=== PATIENT | female | born 1965 | race Two or more races ===

== ENCOUNTER 2024-07-27 16:54 | Emergency (ER) | payer MEDICAID ==
[~2024-07-27] VITALS: Ht 172.7 cm; Wt 103.2 kg
[2024-07-27 17:06] VITALS: BP 137/62; PULSE 97; O2SAT 99
[2024-07-27 19:49] VITALS: RESP 16
[2024-07-27] MEDS: ketorolac trometh 30MG/ML vial 30 MG/ML VIAL IM ONE (19:49)
--- NOTE | 2024-07-27 20:18 | Physician Documentation ---
History of Present Illness ~ Chief Complaint: Back Pain Stated Complaint: LOWER BACKPAIN Time Seen by MD: 18:59 OK to notify your PCP?: Yes Source: patient, family Mode of Arrival: POV Exam Limitations: no limitations HPI Jazmyn is a 59-year-old female who reports going on a 4 hour hike today and now is having some lumbar muscle pain worse on the left side. She states that she had lumbar surgery on her discs 4 years ago. She has good range of motion just pain with changing positions. She denies any muscle weakness numbness or tingling. She denies any falls or trauma during her hike. Denies any urinary symptoms. Medication Reconciliation Allergies: Coded Allergies: No Known Allergies (Unverified , 07/27/24) Scheduled Cyclobenzaprine* (Cyclobenzaprine*), 1 TAB PO HS Lidocaine (Lidoderm), 1 PATCH TOP DAILY Review of Systems All Other Systems at this time: Reviewed and Negative Physical Exam Physical Exam Vital Signs: RN Vital Signs have been reviewed: Yes, Temperature: 97.8, Source: Oral, Heart Rate: 97, Respiratory Rate: 16, BP: 137/62, Pulse Oximetry: 99, Weight: 103.180 Pulse Oximetry Reflects: adequate oxygenation Physical Exam General: conscious, coherent, non-toxic appearing, follows commands appropriately and in no apparent distress. Skin: Warm and dry without rash. Neck: Supple. Trachea midline. No JVD. Chest: Good expansion without retractions or grunting. Equal chest rise and fall. Lungs clear to auscultation Heart: No cyanosis. S1-S2 normal no murmurs gallops rubs or clicks. Extremities: Full range of motion. Good strength, bilaterally. No cyanosis, clubbing or edema. Back: No CVA tenderness. Pain with palpating the muscle on her left lumbar area. Neurologic: A&Ox4. Moves all extremities. Speech is clear. Gait normal. Progress Results/Orders Reviewed/noted all lab results: Yes Results/Orders Completed Orders - JAMILAH SAHU SERVICE ARCHITECT Ketorolac Trometh 30mg/Ml Vial (Toradol (07/27/24 19:00) Cyclobenzaprine Tablet (Flexeril Tablet) (07/27/24 20:20) Vital Signs 07/27/24 07/27/24 07/27/24 17:06 19:49 20:29 Temp 97.8 97.8 Pulse 97 Resp 18 16 B/P (MAP) 137/62 Pulse Ox 99 Medical Decision Making Findings Jazmyn is a 59-year-old female with low back muscle pain/soreness after a 4 hour hike today. There has been no trauma to the area or falls. She has good range of motion but is tender to palpation. She denies any urinary symptoms, which rules out the possibility of a kidney stone causing the pain. She reports h aving some relief from the Toradol which was ordered. We used shared decision making with the patient and she agrees to the plan of having Flexeril and a Lidoderm patch to go home and take Tylenol and ibuprofen for pain relief. We discuss strict return instructions and if she has any new or worsening symptoms to please return to the emergency department such as numbness/weakness/tingling in her extremities. Follow-up with her primary care provider in the next 3 days Differential Dx:Considerations: Include: Fracture, Musculoskeletal pain, Pyelonephritis, Strain, Urolithiasis Departure Disposition: HOME / SELF CARE / HOMELESS Impression: Primary Impression: Lumbar sprain Condition: Stable Discharge Instructions: Lumbosacral Strain Additional Instructions: We discuss strict return instructions and if she has any new or worsening symptoms to please return to the emergency department such as numbness/weakness/tingling in her extremities. Follow-up with her primary care provider in the next 3 days. Take Tylenol and/or ibuprofen for pain relief and use the Flexeril and Lidoderm patches for pain relief as well. Referrals: NO PRIMARY CARE PROVIDER (PCP) Prescriptions Lidocaine (Lidoderm) 5 % Adh..patch 1 PATCH TOP DAILY for 10 Days, #10 PATCH 0 Refills may wear up to 12 hours Prov: JAMILAH SAHUP 07/27/24 Cyclobenzaprine* (Cyclobenzaprine*) 10 Mg Tablet 1 TAB PO HS for muscle spasms for 10 Days, #10 TAB 0 Refills Prov: JAMILAH SAHUP 07/27/24 Education Educated: Patient, Family Educated regarding: diagnosis, treatment, prognosis, need for follow up Signature Scribe Signature: . Attestation: Scribed for Jamilah Sahup by Jamilah Blakely NP . 07/30/24 14:52 JAMILAH SAHU [facility] July 27, 2024 20:18
[2024-07-27] MEDS ORDERED: LIDO700A32 TOP (20:27)
[2024-07-27] MEDS ORDERED: CYCL-1 PO (20:27)
[2024-07-27 20:29] VITALS: TEMP 97.8
[2024-07-27] MEDS: cyclobenzaprine 10mg tablet PO ONE (20:31)
== END 2024-07-27 20:36 | disposition home or self-care (01) ==
LOC: ER 16:56
DX: S33.5XXA Sprain of ligaments of lumbar spine, initial encounter (principal); X58.XXXA Exposure to other specified factors, initial encounter; Y93.89 Activity, other specified; Y92.89 Other specified places as the place of occurrence of the external cause; Y99.8 Other external cause status
CPT/HCPCS: 96372; 99283; J1885